=== PATIENT | male | born 2000 | race Two or more races ===

== ENCOUNTER 2019-01-19 05:06 | Emergency (ER) | payer SELFPAY ==
[~2019-01-19] VITALS: Ht 172.7 cm; Wt 54.0 kg
[2019-01-19] MEDS ORDERED: EPINEPHRINE 1:1000 1 MG/ML AMP IM ONE (05:30)
[2019-01-19] MEDS ORDERED: DIPHENHYDRAMINE 50MG/ML VIAL IV ONE (05:30)
[2019-01-19] MEDS ORDERED: FAMOTIDINE 20MG/2ML VIAL IV ONE (05:30)
[2019-01-19] MEDS ORDERED: DEXAMETHASONE 10 MG/ML VIAL IV ONE (05:30)
[2019-01-19 06:14] VITALS: BP 93/55
== END 2019-01-19 06:53 | disposition home or self-care (01) ==
LOC: ER 05:40
DX: T78.05XA Anaphylactic reaction due to tree nuts and seeds, initial encounter (principal); Z91.018 Allergy to other foods
CPT/HCPCS: 96372; 96374; 96375; 99283; J1100; J1200; J3490